=== PATIENT | male | born 1985 | race Caucasian/White ===

== ENCOUNTER 2024-09-10 20:05 | Inpatient (IN) | payer MEDICAID ==
[~2024-09-10] VITALS: Ht 177.8 cm; Wt 107.5 kg
[2024-09-10 20:15] VITALS: BP 147/95; PULSE 78; RESP 18; TEMP 36.114; O2SAT 98
[2024-09-10 20:30] VITALS: BP 147/95; PULSE 78; RESP 18; TEMP 36.14
[2024-09-10] MEDS ORDERED: MELATONIN 3MG TABLET PO PRN (21:30)
[2024-09-10] MEDS ORDERED: DEXTROSE 50% WATER 50ML SYRINGE IV PRN (21:30)
[2024-09-10] MEDS ORDERED: ONDANSETRON HCL 4MG/2ML INJ IV PRN (21:30)
[2024-09-10] MEDS ORDERED: HYDRALAZINE 10 MG in SODIUM CHLORIDE 0.9% 49.5 ML IV PRN (21:30)
[2024-09-10] MEDS ORDERED: ACETAMINOPHEN 325MG TABLET PO PRN (21:30)
[2024-09-10] MEDS: ACETAMINOPHEN 325MG TABLET PO PRN (23:53)
[2024-09-11] MEDS: PANTOPRAZOLE 40MG DR TABLET PO SCH (07:08)
[2024-09-11 07:11] LABS: BASOPHILS % 0.6 % (0.0-2.0); EOSINOPHILS % 2.6 % (0.0-5.0); HEMATOCRIT. 37.8 % (42.0-52.0); HEMOGLOBIN. 12.4 g/dL (14.0-18.0); LYMPHOCYTES % 34.6 % (20.0-50.0); MEAN CORPUSCULAR HEMOGLOBIN 28.7 pg (28.0-32.0); MEAN CORPUSCULAR HGB CONC 32.8 g/dL (31.0-37.0); MEAN CORPUSCULAR VOLUME 87.6 fL (80.0-94.0); MEAN PLATELET VOLUME 7.7 fl (7.4-10.4); MONOCYTES % 10.2 % (2.0-8.0); PLATELET 364 x1000/uL (130-400); RED BLOOD CELL COUNT 4.31 mill/uL (4.7-6.1); RED CELL DISTRIBUTION WIDTH 14.4 % (11.6-14.6); WHITE BLOOD COUNT 7.4 x1000/uL (4.5-11.0)
[2024-09-11 07:38] LABS: CHLORIDE 109 mEq/L (98-107); POTASSIUM 4.2 mEq/L (3.5-5.1); SODIUM 137 mEq/L (136-145)
[2024-09-11 07:39] LABS: CARBON DIOXIDE 21 mEq/L (21-32)
[2024-09-11 07:40] LABS: CALCIUM 10.8 mg/dL (8.7-10.4)
[2024-09-11 07:44] LABS: GLUCOSE 94 mg/dL (70-105); UREA NITROGEN BLOOD 31 mg/dL (9-23)
[2024-09-11 07:46] LABS: ALANINE AMINOTRANSFERASE 11 IU/L (10-49); ALBUMIN 3.6 g/dL (3.2-4.8); ASPARTATE AMINOTRANSFERASE 16 IU/L (<34)
[2024-09-11 07:47] LABS: BILIRUBIN TOTAL 0.2 mg/dL (0.1-1.0); PROTEIN TOTAL 6.8 g/dL (6.0-8.3)
[2024-09-11 08:00] VITALS: BP 170/100; PULSE 78; RESP 20; TEMP 36.22512; O2SAT 97
[2024-09-11] MEDS: CARVEDILOL 12.5MG TABLET PO SCH (08:27)
[2024-09-11] MEDS: ASPIRIN 325MG TABLET PO SCH (08:27)
[2024-09-11] MEDS: AMLODIPINE 10MG TABLET PO SCH (08:28)
[2024-09-11] MEDS: CLOPIDOGREL 75MG TABLET PO SCH (08:28)
[2024-09-11] MEDS: ISOSORBIDE MONONITRATE 30MG TABLET SR 24HR PO SCH (08:29)
[2024-09-11] MEDS: BLOOD SUGAR DIAGNOSTIC STRIP TEST SCH (11:15)
[2024-09-11] MEDS: INSULIN LISPRO 100 UNITS/ML SUBCUT SCH (12:46)
[2024-09-11 20:00] VITALS: BP 174/100; PULSE 78; RESP 18; TEMP 36.22512; O2SAT 97
[2024-09-11] MEDS: ENOXAPARIN 30MG/0.3ML SYR SUBCUT SCH (20:22)
[2024-09-11] MEDS: ATORVASTATIN CALCIUM 40MG TABLET PO SCH (20:22)
[2024-09-11] MEDS: VANCOMYCIN 2,000 MG in DEXT 5% WATER 500 ML IV NR (22:40)
[2024-09-12] MEDS: CLONIDINE 0.1MG TABLET PO PRN (01:08)
[2024-09-12] MEDS: KETOROLAC 15MG/ML VIAL IV NR (01:42)
[2024-09-12] MEDS: ALPRAZOLAM 0.25 MG TABLET PO PRN (01:45)
[2024-09-12 06:20] VITALS: BP 147/91; PULSE 65
[2024-09-12 08:00] VITALS: BP 156/90; PULSE 66; RESP 20; TEMP 36.3918; O2SAT 100
[2024-09-12] MEDS ORDERED: PRIMIDONE 50MG TABLET PO SCH (10:42)
[2024-09-12] MEDS ORDERED: VANCOMYCIN 1000MG/250ML IV SCH (14:00)
[2024-09-12] MEDS ORDERED: NALOXONE HCL 0.4MG/ML VIAL IV PRN (15:00)
[2024-09-12] MEDS ORDERED: VANCOMYCIN 1G PREMIX 200 ML IV SCH (15:00)
[2024-09-12 20:00] VITALS: BP 156/96; PULSE 65; RESP 20; TEMP 36.33624; O2SAT 97
[2024-09-12] MEDS: VANCOMYCIN 1.25GM/250ML 250 ML IV SCH (20:23)
[2024-09-12] MEDS: HYDROCODONE/ACETAMINOPHEN 5/325MG TABLET PO PRN (20:37)
[2024-09-13 08:00] VITALS: BP 162/103; PULSE 73; RESP 20; TEMP 36.22512; O2SAT 99
[2024-09-13] MEDS: FAMOTIDINE 20MG TABLET PO SCH (09:17)
[2024-09-13 09:44] LABS: POTASSIUM 4.6 mEq/L (3.5-5.1)
[2024-09-13 09:45] LABS: CALCIUM 11.1 mg/dL (8.7-10.4)
[2024-09-13 09:50] LABS: CREATININE 1.8 mg/dL (0.6-1.3)
[2024-09-13 20:00] VITALS: BP 190/103; PULSE 68; RESP 18; TEMP 36.72516; O2SAT 97
[2024-09-13 21:00] VITALS: BP 153/95
[2024-09-13] MEDS: VANCOMYCIN 1000MG/250ML IV SCH (21:10)
[2024-09-14 08:00] VITALS: BP 164/101; PULSE 77; RESP 20; TEMP 36.05844; O2SAT 100
[2024-09-14] MEDS: SULFAMETHOXAZOLE/TRIMETHOPRIM 800/160MG TABLET PO SCH (11:18)
[2024-09-14] MEDS: INFLUENZA VACCINE 05/PF 0.5 ML SYRINGE IM ONE (11:32)
[2024-09-14 13:55] LABS: BASOPHILS % 0.8 % (0.0-2.0); EOSINOPHILS % 1.6 % (0.0-5.0); HEMATOCRIT. 39.7 % (42.0-52.0); MEAN CORPUSCULAR HEMOGLOBIN 28.9 pg (28.0-32.0); MEAN CORPUSCULAR HGB CONC 32.8 g/dL (31.0-37.0); MEAN CORPUSCULAR VOLUME 88.1 fL (80.0-94.0); MEAN PLATELET VOLUME 7.8 fl (7.4-10.4); MONOCYTES % 4.9 % (2.0-8.0); NEUTROPHILS % 61.7 % (40.0-76.0); PLATELET 439 x1000/uL (130-400); RED CELL DISTRIBUTION WIDTH 14.1 % (11.6-14.6); WHITE BLOOD COUNT 8.6 x1000/uL (4.5-11.0)
[2024-09-14 14:28] LABS: POTASSIUM 4.5 mEq/L (3.5-5.1)
[2024-09-14 14:29] LABS: CALCIUM 10.9 mg/dL (8.7-10.4)
[2024-09-14 14:34] LABS: CREATININE 1.6 mg/dL (0.6-1.3)
[2024-09-14] MEDS: DOCUSATE SODIUM 100MG CAPSULE PO PRN (14:56)
[2024-09-14 20:00] VITALS: BP 151/94; PULSE 63; RESP 18; TEMP 36.3918; O2SAT 100
[2024-09-14] MEDS ORDERED: VANCOMYCIN 1GM PMX (XELLIA) 200 ML IV SCH (20:00)
[2024-09-14] MEDS: SODIUM HYPOCHLORITE 0.125% 473ML SOLUTION TOP SCH (21:19)
[2024-09-15 07:59] VITALS: BP 173/97; PULSE 67; RESP 20; TEMP 36.50292; O2SAT 95
[2024-09-15 20:00] VITALS: BP 146/89; PULSE 66; RESP 20; TEMP 36.44736; O2SAT 99
[2024-09-16 08:00] VITALS: BP 148/108; PULSE 83; RESP 20; TEMP 36.16956; O2SAT 99
[2024-09-16] MEDS: SERTRALINE HCL 25MG TABLET PO SCH (09:27)
[2024-09-16 20:00] VITALS: BP 146/91; PULSE 74; RESP 19; TEMP 36.78072; O2SAT 99
[2024-09-16] MEDS: QUETIAPINE FUMARATE 25MG TABLET PO SCH (21:41)
[2024-09-17 07:58] VITALS: BP 156/80; PULSE 69; RESP 20; TEMP 36.55848; O2SAT 100
[2024-09-17 20:00] VITALS: BP 147/90; PULSE 67; RESP 18; TEMP 36.33624; O2SAT 95
[2024-09-18 08:00] VITALS: BP 157/93; PULSE 81; RESP 20; TEMP 36.72516; O2SAT 97
[2024-09-18 20:00] VITALS: BP 136/78; PULSE 71; RESP 18; TEMP 36.83628; O2SAT 97
[2024-09-19 08:00] VITALS: BP 157/93; PULSE 70; RESP 20; TEMP 36.3918; O2SAT 100
[2024-09-19 20:00] VITALS: BP 161/89; PULSE 72; RESP 19; TEMP 37.44744; O2SAT 99
[2024-09-19] MEDS: SENNOSIDES 8.6MG TABLET PO PRN (20:10)
[2024-09-19 20:56] LABS: EOSINOPHILS % 1.8 % (0.0-5.0); HEMATOCRIT. 37.2 % (42.0-52.0); HEMOGLOBIN. 12.8 g/dL (14.0-18.0); MEAN CORPUSCULAR HEMOGLOBIN 30.2 pg (28.0-32.0); MEAN CORPUSCULAR HGB CONC 34.5 g/dL (31.0-37.0); MEAN CORPUSCULAR VOLUME 87.5 fL (80.0-94.0); MEAN PLATELET VOLUME 7.3 fl (7.4-10.4); MONOCYTES % 7.2 % (2.0-8.0); PLATELET 398 x1000/uL (130-400); RED BLOOD CELL COUNT 4.25 mill/uL (4.7-6.1); RED CELL DISTRIBUTION WIDTH 14.1 % (11.6-14.6); WHITE BLOOD COUNT 7.1 x1000/uL (4.5-11.0)
[2024-09-19 20:59] LABS: CHLORIDE 107 mEq/L (98-107); SODIUM 134 mEq/L (136-145)
[2024-09-19 21:00] LABS: CARBON DIOXIDE 23 mEq/L (21-32)
[2024-09-19 21:01] LABS: CALCIUM 10.5 mg/dL (8.7-10.4)
[2024-09-19 21:05] LABS: GLUCOSE 163 mg/dL (70-105)
[2024-09-19 21:06] LABS: UREA NITROGEN BLOOD 28 mg/dL (9-23)
[2024-09-19 21:12] LABS: CREATININE 2.7 mg/dL (0.6-1.3)
[2024-09-20 08:00] VITALS: BP 141/97; PULSE 73; RESP 19; TEMP 36.3918; O2SAT 99
[2024-09-20] MEDS ORDERED: AMLO10TA80 PO (09:35)
[2024-09-20] MEDS ORDERED: CLOP-31 PO (09:35)
[2024-09-20] MEDS ORDERED: ISOS30TA91 PO (09:35)
[2024-09-20] MEDS ORDERED: LIP40 PO (09:35)
[2024-09-20] MEDS ORDERED: COR12 PO (09:35)
[2024-09-20] MEDS ORDERED: QUET25TA PO (09:35)
[2024-09-20] MEDS ORDERED: SERT25TA74 PO (09:35)
[2024-09-20] MEDS ORDERED: ASPI-1406 PO (09:42)
[2024-09-20] MEDS: SODIUM CHLORIDE 0.9% 1000ML BAG (SEPSIS BOLUS) IV ONE (11:30)
[2024-09-20 13:56] LABS: CLARITY URINE CLEAR (CLEAR); COLOR URINE YELLOW (YELLOW); GLUCOSE URINE TRACE (NEGATIVE); KETONES URINE NEGATIVE (NEGATIVE); LEUKOCYTE ESTERASE URINE NEGATIVE (NEGATIVE); NITRITE URINE NEGATIVE (NEGATIVE); OCCULT BLOOD URINE 1+ (NEGATIVE); PH URINE 5.5 (4.5-8.0); PROTEIN URINE 3+ (NEGATIVE); SPECIFIC GRAVITY URINE 1.015 (1.005-1.030); UROBILINOGEN URINE 0.2 E.U./dL (0.2-1.0)
[2024-09-20 14:14] LABS: SQUAMOUS EPITHELIAL CELL URINE RARE /lpf (RARE/1+)
[2024-09-20 14:15] LABS: BACTERIA URINE TRACE
[2024-09-20 14:16] LABS: RBC URINE 0-2 /hpf (0-2); WBC URINE 0-2 /hpf (0-2)
[2024-09-20 14:21] LABS: CREATININE URINE RANDOM 84.2 mg/dL
[2024-09-20 19:11] LABS: POTASSIUM 5.4 mEq/L (3.5-5.1)
[2024-09-20 19:12] LABS: CALCIUM 10.2 mg/dL (8.7-10.4)
[2024-09-20 19:16] LABS: URIC ACID 7.8 mg/dL (3.7-9.2)
[2024-09-20 19:17] LABS: CREATININE 2.3 mg/dL (0.6-1.3)
[2024-09-20 20:00] VITALS: BP 166/98; PULSE 78; RESP 16; TEMP 36.89184; O2SAT 98
[2024-09-20] MEDS: SODIUM ZIRCONIUM CYCLOSILICATE 10GM/PACKET PO NR (21:56)
[2024-09-21 06:21] LABS: BASOPHILS % 0.8 % (0.0-2.0); EOSINOPHILS % 2.2 % (0.0-5.0); HEMATOCRIT. 37.6 % (42.0-52.0); HEMOGLOBIN. 12.8 g/dL (14.0-18.0); LYMPHOCYTES % 43.8 % (20.0-50.0); MEAN CORPUSCULAR HEMOGLOBIN 29.7 pg (28.0-32.0); MEAN CORPUSCULAR VOLUME 87.6 fL (80.0-94.0); MEAN PLATELET VOLUME 7.5 fl (7.4-10.4); MONOCYTES % 9.1 % (2.0-8.0); NEUTROPHILS % 44.1 % (40.0-76.0); PLATELET 372 x1000/uL (130-400); RED BLOOD CELL COUNT 4.29 mill/uL (4.7-6.1); RED CELL DISTRIBUTION WIDTH 14.2 % (11.6-14.6); WHITE BLOOD COUNT 6.9 x1000/uL (4.5-11.0)
[2024-09-21 06:24] LABS: CARBON DIOXIDE 23 mEq/L (21-32); CHLORIDE 113 mEq/L (98-107); POTASSIUM 4.3 mEq/L (3.5-5.1); SODIUM 140 mEq/L (136-145)
[2024-09-21 06:29] LABS: CREATININE 2.1 mg/dL (0.6-1.3); GLUCOSE 145 mg/dL (70-105); UREA NITROGEN BLOOD 24 mg/dL (9-23)
[2024-09-21 06:31] LABS: ALANINE AMINOTRANSFERASE 26 IU/L (10-49); ALBUMIN 3.5 g/dL (3.2-4.8); ASPARTATE AMINOTRANSFERASE 27 IU/L (<34)
[2024-09-21 06:32] LABS: BILIRUBIN TOTAL 0.2 mg/dL (0.1-1.0); PROTEIN TOTAL 6.3 g/dL (6.0-8.3)
[2024-09-21 06:38] LABS: BILIRUBIN DIRECT < 0.1 mg/dL (<=3.0)
[2024-09-21 08:00] VITALS: BP 173/93; PULSE 63; RESP 20; TEMP 36.6696; O2SAT 98
[2024-09-21] MEDS: FAMOTIDINE 20MG TABLET PO SCH (09:20)
[2024-09-21 20:00] VITALS: BP 162/96; PULSE 65; RESP 18; TEMP 36.50292; O2SAT 100
[2024-09-22 08:00] VITALS: BP 150/95; PULSE 69; RESP 20; TEMP 36.55848; O2SAT 98
[2024-09-22 14:49] VITALS: BP 137/93; PULSE 80; TEMP 92.3; O2SAT 100
[2024-09-22 15:34] LABS: BASOPHILS % 0.6 % (0.0-2.0); EOSINOPHILS % 0.9 % (0.0-5.0); HEMATOCRIT. 42.9 % (42.0-52.0); HEMOGLOBIN. 13.9 g/dL (14.0-18.0); LYMPHOCYTES % 22.3 % (20.0-50.0); MEAN CORPUSCULAR HEMOGLOBIN 28.5 pg (28.0-32.0); MEAN CORPUSCULAR HGB CONC 32.3 g/dL (31.0-37.0); MEAN CORPUSCULAR VOLUME 88.3 fL (80.0-94.0); MEAN PLATELET VOLUME 7.4 fl (7.4-10.4); MONOCYTES % 4.6 % (2.0-8.0); NEUTROPHILS % 71.6 % (40.0-76.0); PLATELET 446 x1000/uL (130-400); RED BLOOD CELL COUNT 4.86 mill/uL (4.7-6.1); RED CELL DISTRIBUTION WIDTH 14.4 % (11.6-14.6); WHITE BLOOD COUNT 11.8 x1000/uL (4.5-11.0)
[2024-09-22 16:34] LABS: CALCIUM 10.7 mg/dL (8.7-10.4); CARBON DIOXIDE 20 mEq/L (21-32); CHLORIDE 105 mEq/L (98-107); POTASSIUM 4.7 mEq/L (3.5-5.1); SODIUM 131 mEq/L (136-145)
[2024-09-22 16:39] LABS: CREATININE 2.3 mg/dL (0.6-1.3); IRON 85 ug/dL (65-175)
[2024-09-22 16:40] LABS: GLUCOSE 204 mg/dL (70-105); TRIGLYCERIDE 228 mg/dL (0-150); UREA NITROGEN BLOOD 25 mg/dL (9-23)
[2024-09-22 16:41] LABS: LDL CHOLESTEROL 116 mg/dL (5-100)
[2024-09-22 16:42] LABS: CHOLESTEROL 181 mg/dL (<200); HDL CHOLESTEROL 36 mg/dL (>55); TOTAL IRON BINDING CAPACITY 317 ug/dl (250-425)
[2024-09-22 16:46] LABS: FERRITIN 159 ng/mL (22-322); FOLIC ACID (FOLATE) SERUM 9.69 ng/mL (>5.38)
[2024-09-22 16:47] LABS: VITAMIN B12 SERUM 249 pg/mL (211-911)
[2024-09-23 13:11] LABS: *CREATININE RANDOM URINE 81.7 mg/dL (Not Estab.)
[2024-09-23 14:12] LABS: MICROALBUMIN RANDOM URINE 3938.2 ug/mL (Not Estab.)
== END 2024-09-22 16:24 | disposition home health service (06) | DRG 45 ==
PROVIDERS: ADMIT Psychiatry & Neurology Neurology; ATTEND Internal Medicine
PROC: 0JBG0ZZ Excision of Right Lower Arm Subcutaneous Tissue and Fascia, Open Approach (ICD-10-PCS; principal; 2024-09-14)
DX: I63.9 Cerebral infarction, unspecified (principal); N17.9 Acute kidney failure, unspecified; I80.8 Phlebitis and thrombophlebitis of other sites; L03.113 Cellulitis of right upper limb; E11.9 Type 2 diabetes mellitus without complications; E66.01 Morbid (severe) obesity due to excess calories; F41.0 Panic disorder [episodic paroxysmal anxiety]; I10 Essential (primary) hypertension; F41.1 Generalized anxiety disorder; F32.9 Major depressive disorder, single episode, unspecified; M25.421 Effusion, right elbow; R06.00 Dyspnea, unspecified; R07.9 Chest pain, unspecified; R44.0 Auditory hallucinations; R53.81 Other malaise; F17.210 Nicotine dependence, cigarettes, uncomplicated; Z68.34 Body mass index [BMI] 34.0-34.9, adult; Z91.51 Personal history of suicidal behavior
CPT/HCPCS: 36415; 76770; 80048; 80053; 80061; 80076; 80202; 81003; 82043; 82550; 82570; 82607; 82728; 82746; 82962; 83036; 83540; 83550; 83735; 84100; 84300; 84550; 85025; 87070; 87077; 87186; 90686; 92523; 92610; 93970; 93971; 97110; 97112; 97116; 97150; 97162; 97166; 97530; 97535; J1650; J1815; J1885; J3370; J7060